=== PATIENT | female | born 1995 | race Caucasian/White ===

== ENCOUNTER 2018-11-29 12:01 | Observation (INO) | payer MEDICAID ==
[~2018-11-29] VITALS: Ht 165.1 cm; Wt 68.0 kg
== END 2018-11-29 14:15 | disposition home or self-care (01) ==
LOC: INTOOBSV 12:01 → SPU 12:01
PROVIDERS: ADMIT Obstetrics & Gynecology; ATTEND Obstetrics & Gynecology
DX: O26.893 Other specified pregnancy related conditions, third trimester (principal); M54.5 Low back pain; Z3A.36 36 weeks gestation of pregnancy
CPT/HCPCS: 59025; 81002-TC; G0378

== ENCOUNTER 2018-12-05 19:47 | Observation (INO) | payer MEDICAID ==
[~2018-12-05] VITALS: Ht 165.1 cm; Wt 68.0 kg
[2018-12-05 21:00] LABS: BASOPHILS % (AUTO) 0.4 % (0.0-2.0); EOSINOPHILS % (AUTO) 0.6 % (0.0-4.0); HEMATOCRIT 30.1 % (36-48); HEMOGLOBIN 10.6 g/dL (12.0-16.0); LYMPHOCYTES # (AUTO) 1.8 K/uL (1.0-5.5); MEAN CORPUSCULAR HEMOGLOBIN 31 pg (27-31); MEAN CORPUSCULAR HGB CONC 35 % (32-36); MEAN CORPUSCULAR VOLUME 88 fL (79.0-98.0); MONOCYTES # (AUTO) 0.8 K/uL (0.0-1.0); MONOCYTES % (AUTO) 9.4 % (1.7-9.3); NEUTROPHILS # (AUTO) 5.5 K/uL (1.8-7.7); NEUTROPHILS % (AUTO) 67.6 % (40.0-70.0); PLATELET COUNT (AUTO) 224 K/uL (130-430); RED BLOOD CELL COUNT(AUTO) 3.43 MIL/uL (4.2-6.2); RED CELL DISTRIBUTION WIDTH 13.6 % (9.0-15.0); WHITE BLOOD COUNT (AUTO) 8.1 K/uL (4.8-10.8)
[2018-12-05 21:06] LABS: BILIRUBIN,URINE NEGATIVE (NEGATIVE); BLOOD, URINE NEGATIVE (NEGATIVE); CLARITY/URINE HAZY (CLEAR); COLOR,URINE YELLOW (YELLOW); GLUCOSE,URINE NEGATIVE (NEGATIVE); KETONES,URINE NEGATIVE (NEGATIVE); LEUKOCYTE ESTERASE ,URINE 1+ (NEGATIVE); NITRITE, URINE NEGATIVE (NEGATIVE); PH,URINE 7.5 (5.0-8.0); PROTEIN URINE NEGATIVE (NEGATIVE); UROBILINOGEN,URINE 0.2 (0.2-1.0)
[2018-12-05 21:13] LABS: BACTERIA,URINE MODERATE /HPF (None Seen); RBC,URINE 0-3 /HPF (0-3)
[2018-12-05 21:14] LABS: URINE AMORPHOUS PHOSPHATES 2+ /HPF (None Seen)
[2018-12-05 21:22] LABS: CREATININE 0.68 mg/dL (0.55-1.30); POTASSIUM 3.4 mmol/L (3.5-5.1); TOTAL BILIRUBIN 0.2 mg/dL (0.0-1.0)
[2018-12-05 21:28] LABS: CALCIUM 9.5 mg/dL (8.4-11.0)
[2018-12-05] MEDS ORDERED: NACL 0.9% 1,000 ML IV ONE (22:00)
[2018-12-05] MEDS ORDERED: HYDROcodone/ACETAMIN 5-325 MG TAB (NORCO/ VICODIN) PO SCH (22:15)
[2018-12-05] MEDS ORDERED: cefTRIAXone 1 GM IVPB PREMIX 50 ML IV SCH (22:15)
[2018-12-05] MEDS ORDERED: cefTRIAXone 1 GM VIAL ONE (22:24)
== END 2018-12-05 23:50 | disposition home or self-care (01) ==
LOC: SPU 19:47
PROVIDERS: ADMIT Obstetrics & Gynecology; ATTEND Obstetrics & Gynecology
DX: O62.9 Abnormality of forces of labor, unspecified (principal); O26.893 Other specified pregnancy related conditions, third trimester; M54.9 Dorsalgia, unspecified; Z3A.37 37 weeks gestation of pregnancy
CPT/HCPCS: 36415; 80053; 81000; 81002; 85025; 87086; 96365; G0378; J0696; J7030

== ENCOUNTER 2018-12-15 01:55 | Observation (INO) | payer MEDICAID | END 2018-12-15 06:15 | disposition home or self-care (01) | LOC: SPU 01:55 | PROVIDERS: ADMIT Obstetrics & Gynecology; ATTEND Obstetrics & Gynecology | DX: O62.9 Abnormality of forces of labor, unspecified (principal); O26.893 Other specified pregnancy related conditions, third trimester; R10.9 Unspecified abdominal pain; Z3A.39 39 weeks gestation of pregnancy | CPT/HCPCS: 59025; 81002; G0378 ==

== ENCOUNTER 2018-12-19 21:35 | Inpatient (IN) | payer MEDICAID ==
[~2018-12-19] VITALS: Ht 165.1 cm; Wt 71.2 kg
[~2018-12-19 21:35] MED LIST: LIDOCAINE 2%, 20 ML MDV INJ ONE; LR 1,000 ML IV.SOLN IV ONE; MIDAZOLAM HCL 5 MG/5 ML VIAL IVP ONE; MORPHINE SULFATE 10MG/10ML PF AMP EP ONE; NS IRRIG SOLN 1000 ML IR ONE; OXYTOCIN 10 UNIT/ML VIAL IV ONE
[2018-12-19] MEDS ORDERED: OXYTOCIN/0.9 % SODIUM CHLORIDE 1,000 ML IV SCH (21:39)
[2018-12-19] MEDS ORDERED: LR 1,000 ML IV ONE (21:39)
[2018-12-19] MEDS ORDERED: DINOPROSTONE 10 MG SUPP VG ONE (21:45)
[2018-12-19] MEDS ORDERED: TERBUTALINE SULFATE 1 MG/ML VIAL SUBCUT ONE (21:45)
[2018-12-19 22:46] LABS: BASOPHILS % (AUTO) 0.4 % (0.0-2.0); EOSINOPHILS # (AUTO) 0.1 K/uL (0.0-0.4); EOSINOPHILS % (AUTO) 0.6 % (0.0-4.0); HEMATOCRIT 29.3 % (36-48); HEMOGLOBIN 10.2 g/dL (12.0-16.0); LYMPHOCYTES # (AUTO) 2.1 K/uL (1.0-5.5); LYMPHOCYTES % (AUTO) 24.6 % (20.5-51.5); MEAN CORPUSCULAR HEMOGLOBIN 30 pg (27-31); MEAN CORPUSCULAR HGB CONC 35 % (32-36); MEAN CORPUSCULAR VOLUME 87 fL (79.0-98.0); MONOCYTES # (AUTO) 0.7 K/uL (0.0-1.0); MONOCYTES % (AUTO) 8.2 % (1.7-9.3); NEUTROPHILS # (AUTO) 5.6 K/uL (1.8-7.7); NEUTROPHILS % (AUTO) 66.2 % (40.0-70.0); PLATELET COUNT (AUTO) 225 K/uL (130-430); RED BLOOD CELL COUNT(AUTO) 3.37 MIL/uL (4.2-6.2); RED CELL DISTRIBUTION WIDTH 13.5 % (9.0-15.0); WHITE BLOOD COUNT (AUTO) 8.4 K/uL (4.8-10.8)
[2018-12-19 23:12] VITALS: BP_SYST 100
[2018-12-19] MEDS: LR 1,000 ML IV SCH (23:25)
[2018-12-19] MEDS: NALBUPHINE HCL 10 MG/ML AMP IVP PRN (23:26)
[2018-12-20] MEDS: NALBUPHINE HCL 10 MG/ML AMP IVP PRN ×5 (03:01→15:28)
[2018-12-20] MEDS: LR 1,000 ML IV SCH ×2 (04:00→11:26)
[2018-12-20] MEDS ORDERED: LR 500 ML IV ONE (15:34)
[2018-12-20] MEDS ORDERED: FENT2mCg/mL-ROPIVA0.2%/NS EPID 200 ML EP SCH (15:45)
[2018-12-20] MEDS ORDERED: fentaNYL CITRATE/PF 100 MCG/2 ML AMP ONE (16:26)
[2018-12-20] MEDS ORDERED: ROPIVACAINE HCL/PF 0.2% 200 ML ONE (16:26)
[2018-12-21] MEDS ORDERED: ROPIVACAINE HCL/PF 0.2% 200 ML ONE (00:34)
[2018-12-21] MEDS ORDERED: AMPICILLIN SODIUM 2 GM in NS 100 ML IV ONE (06:45)
[2018-12-21] MEDS ORDERED: fentaNYL CITRATE/PF 100 MCG/2 ML AMP ONE (06:56)
[2018-12-21] MEDS ORDERED: AMPICILLIN SODIUM 1 GM in NS 50 ML IV SCH (12:00)
[2018-12-21] MEDS ORDERED: CEFAZOLIN 2 GM IVPB PREMIX 50 ML IV ONE ×2 (12:30→12:43)
[2018-12-21] MEDS ORDERED: LR 1,000 ML IV SCH ×2 (13:48→19:32)
[2018-12-21] MEDS ORDERED: HEPATITIS B VIRUS VACCINE-PF PED 10 MCG/0.5 ML I.M. ONE (14:00)
[2018-12-21] MEDS ORDERED: DIPHENHYDRAMINE INJ 50 MG/ML VIAL IM PRN (14:00)
[2018-12-21] MEDS ORDERED: PHYTONADIONE 1 MG/0.5 ML SYR IM ONE (14:00)
[2018-12-21] MEDS ORDERED: MORPHINE 4 MG/ML INJ. SYRINGE IVP PRN ×2 (14:00)
[2018-12-21] MEDS ORDERED: ERYTHROMYCIN BASE 0.5% EYE OINT...G. OP ONE (14:00)
[2018-12-21] MEDS ORDERED: NALOXONE HCL 0.4 MG/ML AMP (NARCAN) IVP PRN (14:00)
[2018-12-21] MEDS ORDERED: KETOROLAC TROMETHAMINE 60 MG/2 ML VIAL IM PRN (14:00)
[2018-12-21] MEDS ORDERED: MORPHINE SULFATE 10MG/10ML PF AMP EP SCH (14:00)
[2018-12-21 14:01] VITALS: BP_SYST 120
[2018-12-21] MEDS: MORPHINE 4 MG/ML INJ. SYRINGE IVP PRN ×2 (14:38→15:01)
[2018-12-21] MEDS ORDERED: MORPHINE 4 MG/ML INJ. SYRINGE ONE (14:46)
[2018-12-21] MEDS ORDERED: OXYTOCIN/0.9 % SODIUM CHLORIDE 1,000 ML IV ONE (19:32)
[2018-12-21] MEDS ORDERED: ANUSOL 1 EA SUPP.RECT (PREPARATION H) RC PRN (19:45)
[2018-12-21] MEDS ORDERED: LANOLIN 7 GM OINT. TP PRN (19:45)
[2018-12-21] MEDS ORDERED: DIPH-TET-PERTUS Vaccine 0.5 ML VIAL (ADACEL) I.M. PRN (19:45)
[2018-12-21] MEDS ORDERED: MEASLES,MUMPS&RUBELLA VACC/PF 12500 UNIT/0.5 ML VIAL SUBQ PRN (19:45)
[2018-12-21] MEDS ORDERED: RHO(D) IMMUNE GLOBULIN/MALTOSE 1500 UNITS/1.3 ML (WINHRO) IM PRN (19:45)
[2018-12-21] MEDS ORDERED: CEFAZOLIN 1 GM IVPB PREMIX 50 ML IV ONE (19:51)
[2018-12-21] MEDS ORDERED: CEFAZOLIN 1 GM IVPB PREMIX 50 ML IV SCH (20:00)
[2018-12-21] MEDS: ONDANSETRON HCL 4 MG/2 ML VIAL IVP PRN (20:34)
[2018-12-21] MEDS ORDERED: TEMAZEPAM 15 MG CAPSULE PO PRN (21:00)
[2018-12-21] MEDS ORDERED: HYDROcodone/ACETAMIN 5-325 MG TAB (NORCO/ VICODIN) PO PRN (21:30)
[2018-12-21] MEDS ORDERED: KETOROLAC TROMETHAMINE 30 MG VIAL IVP PRN (21:45)
[2018-12-21] MEDS ORDERED: OXYCODONE/ACETAMINOPHEN 5-325 TABLET PO PRN ×2 (21:45)
[2018-12-21] MEDS ORDERED: WITCH HAZEL LEAF 1 MED.PAD MED.PAD TP PRN (22:00)
[2018-12-22] MEDS: OXYCODONE/ACETAMINOPHEN 5-325 TABLET PO PRN ×6 (04:57→21:25)
[2018-12-22] MEDS: DOCUSATE SODIUM 100 MG CAPSULE PO PRN ×3 (06:34→18:12)
[2018-12-22] MEDS: IBUPROFEN 600 MG TABLET PO SCH ×4 (06:35→23:55)
[2018-12-22] MEDS: SIMETHICONE 80 MG TAB.CHEW PO PRN ×6 (06:35→23:57)
[2018-12-22] MEDS: ONDANSETRON HCL 4 MG/2 ML VIAL IVP PRN (06:43)
[2018-12-22 07:26] LABS: BASOPHILS # (AUTO) 0.1 K/uL (0.0-0.2); BASOPHILS % (AUTO) 0.4 % (0.0-2.0); EOSINOPHILS # (AUTO) 0.1 K/uL (0.0-0.4); EOSINOPHILS % (AUTO) 0.4 % (0.0-4.0); HEMATOCRIT 24.3 % (36-48); HEMOGLOBIN 8.2 g/dL (12.0-16.0); LYMPHOCYTES # (AUTO) 1.2 K/uL (1.0-5.5); LYMPHOCYTES % (AUTO) 9.2 % (20.5-51.5); MEAN CORPUSCULAR HEMOGLOBIN 29 pg (27-31); MEAN CORPUSCULAR HGB CONC 34 % (32-36); MEAN CORPUSCULAR VOLUME 87 fL (79.0-98.0); MONOCYTES # (AUTO) 0.7 K/uL (0.0-1.0); MONOCYTES % (AUTO) 5.3 % (1.7-9.3); NEUTROPHILS # (AUTO) 10.6 K/uL (1.8-7.7); NEUTROPHILS % (AUTO) 84.7 % (40.0-70.0); PLATELET COUNT (AUTO) 179 K/uL (130-430); RED BLOOD CELL COUNT(AUTO) 2.81 MIL/uL (4.2-6.2); RED CELL DISTRIBUTION WIDTH 13.7 % (9.0-15.0); WHITE BLOOD COUNT (AUTO) 12.5 K/uL (4.8-10.8)
[2018-12-23] MEDS: OXYCODONE/ACETAMINOPHEN 5-325 TABLET PO PRN ×4 (02:51→21:16)
[2018-12-23] MEDS: DOCUSATE SODIUM 100 MG CAPSULE PO PRN ×3 (02:52→21:15)
[2018-12-23] MEDS: SIMETHICONE 80 MG TAB.CHEW PO PRN ×2 (05:57→21:15)
[2018-12-23] MEDS: IBUPROFEN 600 MG TABLET PO SCH ×2 (05:57→12:28)
[2018-12-24] MEDS: IBUPROFEN 600 MG TABLET PO SCH ×3 (00:18→12:09)
[2018-12-24] MEDS: OXYCODONE/ACETAMINOPHEN 5-325 TABLET PO PRN ×2 (03:48→09:06)
== END 2018-12-24 12:40 | disposition home or self-care (01) | DRG 540 ==
LOC: SPU 21:35
PROVIDERS: ADMIT Obstetrics & Gynecology; ATTEND Obstetrics & Gynecology
PROC: 10D00Z1 Extraction of Products of Conception, Low, Open Approach (ICD-10-PCS; principal; 2018-12-21 12:30)
DX: O62.2 Other uterine inertia (principal); D62 Acute posthemorrhagic anemia; O76 Abnormality in fetal heart rate and rhythm complicating labor and delivery; Z37.0 Single live birth; Z3A.39 39 weeks gestation of pregnancy
CPT/HCPCS: 36415; 81002-TC; 85025; 86592; 86886; 86900; 86901; 88307; J0290; J0690; J1885; J2001; J2250; J2270; J2274; J2300; J2405; J2590; J3010; J7120

== ENCOUNTER 2018-12-24 21:28 | Inpatient (IN) | payer MEDICAID ==
[~2018-12-24] VITALS: Ht 165.1 cm; Wt 70.8 kg
[2018-12-24 21:28] VITALS: BP_SYST 125
[2018-12-24] MEDS ORDERED: NACL 0.9% 1,000 ML IV ONE (23:00)
[2018-12-24] MEDS ORDERED: fentaNYL CITRATE/PF 100 MCG/2 ML AMP IVP ONE (23:00)
[2018-12-24] MEDS ORDERED: DIPHENHYDRAMINE INJ 50 MG/ML VIAL IVP ONE (23:00)
[2018-12-24 23:28] LABS: BASOPHILS % (AUTO) 0.3 % (0.0-2.0); EOSINOPHILS % (AUTO) 0.4 % (0.0-4.0); HEMATOCRIT 22.5 % (36-48); HEMOGLOBIN 7.9 g/dL (12.0-16.0); LYMPHOCYTES % (AUTO) 13.9 % (20.5-51.5); MEAN CORPUSCULAR HEMOGLOBIN 30 pg (27-31); MEAN CORPUSCULAR HGB CONC 35 % (32-36); MEAN CORPUSCULAR VOLUME 86 fL (79.0-98.0); MONOCYTES # (AUTO) 0.5 K/uL (0.0-1.0); MONOCYTES % (AUTO) 6.7 % (1.7-9.3); NEUTROPHILS # (AUTO) 5.7 K/uL (1.8-7.7); NEUTROPHILS % (AUTO) 78.7 % (40.0-70.0); PLATELET COUNT (AUTO) 298 K/uL (130-430); RED BLOOD CELL COUNT(AUTO) 2.63 MIL/uL (4.2-6.2); RED CELL DISTRIBUTION WIDTH 13.6 % (9.0-15.0); WHITE BLOOD COUNT (AUTO) 7.3 K/uL (4.8-10.8)
[2018-12-24 23:34] LABS: CALCIUM 7.8 mg/dL (8.4-11.0); CREATININE 0.57 mg/dL (0.55-1.30); POTASSIUM 3.4 mmol/L (3.5-5.1)
[2018-12-24 23:37] LABS: BILIRUBIN,URINE NEGATIVE (NEGATIVE); CLARITY/URINE CLEAR (CLEAR); COLOR,URINE YELLOW (YELLOW); GLUCOSE,URINE NEGATIVE (NEGATIVE); KETONES,URINE NEGATIVE (NEGATIVE); LEUKOCYTE ESTERASE ,URINE NEGATIVE (NEGATIVE); NITRITE, URINE NEGATIVE (NEGATIVE); PH,URINE 6.5 (5.0-8.0); PROTEIN URINE NEGATIVE (NEGATIVE); UROBILINOGEN,URINE 0.2 (0.2-1.0)
[2018-12-24 23:39] LABS: BLOOD, URINE TRACE (NEGATIVE)
[2018-12-24 23:39] LABS: ALBUMIN 1.3 g/dL (3.4-4.8); PROTHROMBIN TIME 9.6 SECS (9.5-12.5); TOTAL BILIRUBIN 0.3 mg/dL (0.0-1.0)
[2018-12-25 00:02] LABS: BACTERIA,URINE FEW /HPF (None Seen); WBC,URINE 0-3 /HPF (0-3)
[2018-12-25] MEDS ORDERED: OXYCODONE/ACETAMINOPHEN 5-325 TABLET PO ONE (01:15)
[2018-12-25] MEDS ORDERED: NACL 0.9% 1,000 ML IV ONE (01:45)
[2018-12-25 02:31] VITALS: BP_SYST 118
[2018-12-25 02:34] VITALS: BP_SYST 118
[2018-12-25] MEDS ORDERED: metroNIDAZOLE 500 mg/NS 100 ML IV ONE (04:23)
[2018-12-25] MEDS ORDERED: PIPERACILLIN/TAZOBACTAM 3.375 GM/VIAL (ZOSYN) IV ONE (04:24)
[2018-12-25] MEDS: PIPERACILLIN/TAZO 3.375 GM in NS 50 ML IV SCH ×4 (05:09→23:45)
[2018-12-25] MEDS: metroNIDAZOLE 500 mg/NS 100 ML IV SCH ×4 (06:03→23:09)
[2018-12-25 07:27] LABS: BASOPHILS % (AUTO) 0.3 % (0.0-2.0); EOSINOPHILS # (AUTO) 0.1 K/uL (0.0-0.4); HEMATOCRIT 23.2 % (36-48); HEMOGLOBIN 7.9 g/dL (12.0-16.0); LYMPHOCYTES # (AUTO) 1.1 K/uL (1.0-5.5); LYMPHOCYTES % (AUTO) 18.2 % (20.5-51.5); MEAN CORPUSCULAR HEMOGLOBIN 29 pg (27-31); MEAN CORPUSCULAR HGB CONC 34 % (32-36); MEAN CORPUSCULAR VOLUME 87 fL (79.0-98.0); MONOCYTES # (AUTO) 0.5 K/uL (0.0-1.0); MONOCYTES % (AUTO) 7.6 % (1.7-9.3); NEUTROPHILS # (AUTO) 4.6 K/uL (1.8-7.7); NEUTROPHILS % (AUTO) 72.9 % (40.0-70.0); PLATELET COUNT (AUTO) 288 K/uL (130-430); RED BLOOD CELL COUNT(AUTO) 2.68 MIL/uL (4.2-6.2); WHITE BLOOD COUNT (AUTO) 6.3 K/uL (4.8-10.8)
[2018-12-25 08:00] VITALS: BP_SYST 147
[2018-12-25] MEDS: FERROUS SULFATE 325 MG TABLET.DR PO SCH ×3 (08:14→20:36)
[2018-12-25] MEDS: OXYCODONE/ACETAMINOPHEN *10*mg/325 mg TABLET PO PRN ×5 (08:14→20:55)
[2018-12-25] MEDS ORDERED: POTASSIUM CHLORIDE 20 MEQ TAB.PRT.SR PO ONE (11:00)
[2018-12-25 15:02] LABS: CALCIUM 7.7 mg/dL (8.4-11.0); CREATININE 0.59 mg/dL (0.55-1.30); POTASSIUM 3.4 mmol/L (3.5-5.1)
[2018-12-25 15:08] LABS: ALBUMIN 1.2 g/dL (3.4-4.8); TOTAL BILIRUBIN 0.4 mg/dL (0.0-1.0)
[2018-12-25] MEDS: POLYETHYLENE GLYCOL 3350, 17 GM/ POWD.PACK PO ONE ×2 (15:31→15:33)
[2018-12-25 16:00] VITALS: BP_SYST 133
[2018-12-25 20:15] VITALS: BP_SYST 140
[2018-12-25] MEDS: DOCUSATE SODIUM 100 MG CAPSULE PO SCH (20:36)
[2018-12-25] MEDS ORDERED: POLYETHYLENE GLYCOL 3350, 17 GM/ POWD.PACK PO SCH (23:30)
[2018-12-26] MEDS: OXYCODONE/ACETAMINOPHEN *10*mg/325 mg TABLET PO PRN ×3 (00:17→10:25)
[2018-12-26 00:30] VITALS: BP_SYST 126
[2018-12-26] MEDS: metroNIDAZOLE 500 mg/NS 100 ML IV SCH (05:05)
[2018-12-26] MEDS: PIPERACILLIN/TAZO 3.375 GM in NS 50 ML IV SCH (06:25)
[2018-12-26 07:06] LABS: BASOPHILS % (AUTO) 0.3 % (0.0-2.0); EOSINOPHILS # (AUTO) 0.1 K/uL (0.0-0.4); EOSINOPHILS % (AUTO) 0.8 % (0.0-4.0); HEMATOCRIT 23.3 % (36-48); LYMPHOCYTES # (AUTO) 1.4 K/uL (1.0-5.5); LYMPHOCYTES % (AUTO) 18.9 % (20.5-51.5); MEAN CORPUSCULAR HEMOGLOBIN 30 pg (27-31); MEAN CORPUSCULAR HGB CONC 34 % (32-36); MEAN CORPUSCULAR VOLUME 86 fL (79.0-98.0); MONOCYTES # (AUTO) 0.8 K/uL (0.0-1.0); MONOCYTES % (AUTO) 10.5 % (1.7-9.3); NEUTROPHILS % (AUTO) 69.5 % (40.0-70.0); PLATELET COUNT (AUTO) 293 K/uL (130-430); RED BLOOD CELL COUNT(AUTO) 2.71 MIL/uL (4.2-6.2); RED CELL DISTRIBUTION WIDTH 13.3 % (9.0-15.0); WHITE BLOOD COUNT (AUTO) 7.2 K/uL (4.8-10.8)
[2018-12-26 07:23] LABS: ALBUMIN 1.3 g/dL (3.4-4.8); CALCIUM 7.7 mg/dL (8.4-11.0); CREATININE 0.65 mg/dL (0.55-1.30); POTASSIUM 3.4 mmol/L (3.5-5.1); TOTAL BILIRUBIN 0.3 mg/dL (0.0-1.0)
[2018-12-26 07:58] VITALS: BP_SYST 138
[2018-12-26 08:00] LABS: ERYTHROCYTE SEDIMENTATION RATE 93 MM/HR (0-20)
[2018-12-26] MEDS: DOCUSATE SODIUM 100 MG CAPSULE PO SCH (08:12)
[2018-12-26] MEDS: FERROUS SULFATE 325 MG TABLET.DR PO SCH (08:15)
[2018-12-26] MEDS ORDERED: POLYETHYLENE GLYCOL 3350, 17 GM/ POWD.PACK PO SCH (09:00)
[2018-12-26 09:38] LABS: C-REACTIVE PROTEIN QUANT 18.3 mg/dL (0-0.5)
[2018-12-26] MEDS ORDERED: IBUP-1969 PO (10:09)
[2018-12-26] MEDS ORDERED: POLY17PO4 PO (10:10)
[2018-12-26 12:00] VITALS: BP_SYST 131
[2018-12-26 12:12] VITALS: BP_SYST 131
== END 2018-12-26 13:23 | disposition home or self-care (01) | DRG 561 ==
LOC: SED 21:28 → SMU 12-25 01:32
PROVIDERS: ADMIT Obstetrics & Gynecology; ATTEND Obstetrics & Gynecology
DX: O90.81 Anemia of the puerperium (principal); E43 Unspecified severe protein-calorie malnutrition; E83.51 Hypocalcemia; E87.1 Hypo-osmolality and hyponatremia; E88.09 Other disorders of plasma-protein metabolism, not elsewhere classified; O25.3 Malnutrition in the puerperium; O99.285 Endocrine, nutritional and metabolic diseases complicating the puerperium; E87.6 Hypokalemia; Z98.891 History of uterine scar from previous surgery
CPT/HCPCS: 36415; 71045; 76857; 80053; 81000-TC; 83605; 85025; 85610-TC; 85651-TC; 85730-TC; 86140; 87040-TC; 87081; 87086; 96361; 96374; 96375; 99285; J1200; J2543; J3010; J3490; J7030